=== PATIENT | female | born 1990 | race African-American/Black ===

== ENCOUNTER 2016-12-04 00:04 | Emergency (ER) | payer OTHER ==
[2016-12-04 00:12] VITALS: BP 137/90; PULSE 77; TEMP 97.9; BMI 27.1
--- NOTE | 2016-12-04 00:16 | PDOC ---
History of Present Illness - General Chief Complaint: Injury Stated Complaint: LACERATION TO LEFT FOOT Time Seen by Provider: 12/04/16 00:12 History Source: Patient Exam Limitations: No Limitations - History of Present Illness Initial Comments: 12/04/16 00:12 26 y f no pmhx cut on lt foot w/ glass no other trauma. abjuratory Past History - Past Medical History Allergies/Adverse Reactions: Allergies Allergy/AdvReac Type Severity Reaction Status Date / Time amoxicillin [Amoxicillin] Allergy Verified 12/04/16 00:06 sulfamethoxazole Allergy Verified 12/04/16 00:06 [From Bactrim] trimethoprim [From Bactrim] Allergy Verified 12/04/16 00:06 Home Medications: Ambulatory Orders Duloxetine HCl [Cymbalta] 40 mg PO DAILY 01/05/12 Insulin (LOG) Aspart [NovoLOG] 0 unit SQ ASDIR 01/05/12 Insulin Detemir [Levemir Flextouch] 40 unit SQ HS 04/30/16 Lamotrigine [Lamictal] 200 mg PO DAILY 04/30/16 Diabetes: Yes Psychiatric Problems: Yes (DEPRESSION) - Psycho/Social/Smoking Cessation Hx Anxiety: Yes Suicidal Ideation: No Smoking Status: No Smoking History: Never smoked Number of Cigarettes Smoked Daily: 0 Hx Alcohol Use: No Drug/Substance Use Hx: No Substance Use Type: None Review of Systems - Review of Systems Able to Perform ROS?: Yes Is the patient limited Mongolian proficient: No Constitutional: No: Symptoms Reported Musculoskeletal: No: Symptoms Reported Hematologic/Lymphatic: No: Symptoms Reported *Physical Exam - Physical Exam General Appearance: Yes: Nourished, Appropriately Dressed. No: Apparent Distress Extremity: positive: Normal Capillary Refill, Normal Inspection, Normal Range of Motion Integumentary: positive: Normal Color, Other (1 in sup laceration no active bleeding base of 3-4-5th toes NTV intact) Neurologic: positive: Fully Oriented, Normal Response, Motor Strength 5/5 Procedures - Laceration/Wound Repair Left Dorsal Foot Wound Length: to 2.5 cm Wound Explored: clean Wound's Depth, Shape: superficial Irrigated w/ Saline: Yes Wound Repaired With: Dermabond Sterile Dressing Applied: Yes Progress: 12/04/16 00:15 steri strips *DC/Admit/Observation/Transfer Diagnosis at time of Disposition: Laceration - Discharge Dispostion Disposition: HOME Condition at time of disposition: Stable - Patient Instructions Additional Instructions: KEEP WOUND DRY FOR 48 HOURS. AFTER, REGULAR SOAP AND WATER DO NOT REMOVE STERI-STRIPS. THEY WOULD FALL ON THEIR OWN TYLENOL IF pain RETURN IF BLEEDING, swelling, redness, or fever SEE YOUR DOCTOR FOR FOLLOW UP
== END 2016-12-04 00:18 | disposition home or self-care (01) ==
LOC: FER 00:04
PROC: 0HQNXZZ Repair Left Foot Skin, External Approach (ICD-10-PCS; principal; 2016-12-04)
DX: S91.312A Laceration without foreign body, left foot, initial encounter (principal); W25.XXXA Contact with sharp glass, initial encounter; Y93.9 Activity, unspecified; Y92.9 Unspecified place or not applicable; F41.9 Anxiety disorder, unspecified; E11.9 Type 2 diabetes mellitus without complications; Z79.4 Long term (current) use of insulin; F32.9 Major depressive disorder, single episode, unspecified
CPT/HCPCS: 99281-25

== ENCOUNTER 2018-12-16 19:27 | Emergency (ER) | payer OTHER ==
--- NOTE | 2018-12-16 19:38 | PDOC ---
History of Present Illness - History of Present Illness Initial Comments: This patient is a 28 year old female with PMHx of DM, who presents with 2 days of clogged ears and vertiginous dizziness. Patient also complaining of abdominal pain, vomit (2x) this morning. She also endorses congestion and cough and subjective fever yesterday. She states that her GP was concerned that she was dehydrated and sent her to the ED since she is a diabetic. Patient took her blood glucose 3 hrs ago and states it was 175. Allergies: Amoxicillan & Bactrim ROS General: +subjective fevers, no weakness, no weight loss HEENT: No change in vision. No sore throat, +b/l ear pain & fullness. +nasal congestion Cardiovascular: No chest pain or shortness of breath Respiratory:+cough, no wheezing. Gastrointestinal: +abdominal pain +vomiting (x2), no diarrhea or constipation, No rectal bleeding Genitourinary: No dysuria, hematuria, or frequency Musculoskeletal: No joint or muscle pain or swelling Neurologic: No headache, +vertigo,no loss of consciousness Psychiatric: No depression Skin: No rashes or easy bruising Endocrine: No increased thirst or abnormal weight change Allergic: No skin or latex allergy All other systems reviewed and normal PE General: Well-nourished well-developed individual, no acute distress HEENT: Pupils equal reactive and round, extraocular motion intact.Normal, tonsils normal, no erythema or exudate. Cerumen loosely impacted R>L. Neck: Supple, no meningeal signs, no lymphadenopathy Chest: Nontender to palpation Cardiac: S1-S2 normal, regular rate and rhythm, no murmurs rubs or gallops Respiratory: Lungs clear to auscultation bilateral Abdomen: Soft, nondistended, normal bowel sounds, RUQ tenderness to palpation. Positive Garcia's sign. Extremities: Warm, dry, no cyanosis, clubbing, or edema Skin: No rashes Neuro: Alert and oriented x3, nonfocal exam, grossly intact, normal gait Psych: Normal mood and affect 12/16/18 20:05 <Sophie Chavarria - Last Filed: 12/16/18 20:05> - General History Source: Patient Exam Limitations: No Limitations - History of Present Illness Initial Comments: A portion of this note was documented by scribe services under my direction. I have reviewed the details of the note, within reason, and agree with the documentation with the following case summary and management plan written by me. Patient treated in the ED. Nursing notes are reviewed and incorporated into the medical decision-making. Vital signs reviewed. 12/16/18 21:30 Assessment and plan: This is a 28-year-old female brought in by her mother for evaluation of dizziness, nausea, vomiting, abdominal pain and in general feeling poorly. Patient was given Antivert for the vertigo, patient did have some tenderness in her right upper quadrant and I did an ultrasound that was negative for any gallstones or any acute pathology Patient had urinalysis done that did show a positive urinary tract infection however there was no CVA or flank tenderness and floor technician made note that the kidney looked normal. Patient treated with Macrobid for the urinary tract infection Patient given copies of her blood work and will follow-up with her primary care doctor <Rashid Felton I - Last Filed: 12/16/18 21:32> - General Chief Complaint: Pain, Acute Stated Complaint: EARS CLOGGED,DIZZY,VOMITING Time Seen by Provider: 12/16/18 19:37 Past History <Sophie Chavarria - Last Filed: 12/16/18 20:05> - Past Medical History Diabetes: Yes Psychiatric Problems: Yes (DEPRESSION) - Immunization History Immunization Up to Date: Yes - Suicide/Smoking/Psychosocial Hx Smoking Status: No Smoking History: Never smoked Have you smoked in the past 12 months: No Number of Cigarettes Smoked Daily: 0 Hx Alcohol Use: No Drug/Substance Use Hx: No Substance Use Type: None <Rashid Felton I - Last Filed: 12/16/18 21:32> - Past Medical History Allergies/Adverse Reactions: Allergies Allergy/AdvReac Type Severity Reaction Status Date / Time amoxicillin [Amoxicillin] Allergy Verified 12/16/18 19:34 sulfamethoxazole Allergy Verified 12/16/18 19:34 [From Bactrim] trimethoprim [From Bactrim] Allergy Verified 12/16/18 19:34 Home Medications: Ambulatory Orders Insulin (LOG) Aspart [NovoLOG] 0 unit SQ ASDIR 01/05/12 Insulin Detemir [Levemir Flextouch] 40 unit SQ HS 04/30/16 Lamotrigine [Lamictal] 200 mg PO DAILY 04/30/16 Meclizine HCl [Antivert -] 25 mg PO QID #28 tablet 12/16/18 Nitrofurantoin Monohyd/M-Cryst [Macrobid -] 100 mg PO BID #14 capsule 12/16/18 Ondansetron [Zofran Odt -] 4 mg SL TID #12 od.tablet 12/16/18 Review of Systems - Review of Systems Comments:: 12/16/18 19:49 see HPI <Sophie Chavarria - Last Filed: 12/16/18 20:05> *Physical Exam - Vital Signs Last Vital Signs Temp Pulse Resp BP Pulse Ox 98.2 F 90 16 135/82 100 12/16/18 19:38 12/16/18 19:38 12/16/18 19:38 12/16/18 19:38 12/16/18 19:38 - Physical Exam Comments: 12/16/18 19:49 see HPI <Sophie Chavarria - Last Filed: 12/16/18 20:05> Moderate Sedation - Procedure Monitoring Vital Signs: Procedure Monitoring Vital Signs Temperature 98.2 F 12/16/18 19:38 Pulse Rate 90 12/16/18 19:38 Respiratory Rate 16 12/16/18 19:38 Blood Pressure 135/82 12/16/18 19:38 O2 Sat by Pulse Oximetry (%) 100 12/16/18 19:38 <Sophie Chavarria - Last Filed: 12/16/18 20:05> ED Treatment Course - LABORATORY CBC & Chemistry Diagram: 12/16/18 19:45 12/16/18 19:45 <Rashid Felton I - Last Filed: 12/16/18 21:32> *DC/Admit/Observation/Transfer - Attestations Scribe Attestion: 12/16/18 19:49 Documentation prepared by Sophie Chavarria, acting as rn medical surgical for Rashid Felton MD. <Sophie Chavarria - Last Filed: 12/16/18 20:05> - Discharge Dispostion Decision to Admit order: No <Rashid Felton I - Last Filed: 12/16/18 21:32> Diagnosis at time of Disposition: Viral illness, Vertigo - Discharge Dispostion Disposition: HOME Condition at time of disposition: Stable - Prescriptions Prescriptions: Meclizine HCl [Antivert -] 25 mg PO QID #28 tablet Nitrofurantoin Monohyd/M-Cryst [Macrobid -] 100 mg PO BID #14 capsule Ondansetron [Zofran Odt -] 4 mg SL TID #12 od.tablet - Patient Instructions Additional Instructions: Stop taking Tylenol for pain it is okay to take naproxen or Motrin however do not take the naproxen or Motrin on an empty stomach. For nausea I sent a prescription to your pharmacy for Zofran take one tablet as often as 3 times a day if needed. For the spinning and dizziness sensation take Antivert 1 tablet as often as 4 times a day it may make you a little drowsy. Return to the emergency department immediately with ANY new, persistent or worsening symptoms. Continue any medications as previously prescribed by your physician. You should follow up with your primary doctor as soon as possible regarding today's emergency department visit. . Please make sure your doctor reviews the results of your emergency evaluation. Thank you for coming to the Emergency Department today for your care. It was a pleasure to see you today. Please note that your evaluation is INCOMPLETE until you follow-up with your doctor.
[2018-12-16 19:41] VITALS: BP 135/82; PULSE 90; TEMP 98.2; BMI 26.6
[2018-12-16] MEDS ORDERED: ONDANSETRON 4 MG/2 ML VIAL IVPB ONE (19:44)
[2018-12-16] MEDS ORDERED: SODIUM CHLORIDE 1,000 ML IV ONE (19:44)
[2018-12-16] MEDS ORDERED: FAMOTIDINE 20 MG/50 ML IVPB 20 MG/50 ML MG IVPB ONE ×2 (19:46→20:07)
[2018-12-16] MEDS ORDERED: MECLIZINE HCL 25 MG TABLET (FP) PO ONE (19:46)
[2018-12-16] MEDS ORDERED: MECLIZINE HCL 25 MG TABLET (FP) ONE (20:07)
[2018-12-16] MEDS ORDERED: ONDANSETRON 4 MG/2 ML VIAL ONE (20:07)
[2018-12-16 20:15] LABS: PH,URINE 7.5 (4.5-8); URINE APPEARANCE Slightly; URINE BILIRUBIN Negative (NEGATIVE); URINE COLOR Yellow; URINE GLUCOSE (UA) 2+ (NEGATIVE); URINE KETONE Negative (NEGATIVE); URINE LEUK ESTERASE 2+ (NEGATIVE); URINE NITRITE Negative (NEGATIVE); URINE PROTEIN Negative (NEGATIVE); URINE UROBILINOGEN 0.2 (0.2-1.0)
[2018-12-16 20:22] LABS: BASO % 0.8 % (0-2.0); EOS % 2.4 % (0-4.5); HEMATOCRIT 42.4 % (32.4-45.2); HEMOGLOBIN 13.8 GM/dl (10.7-15.3); LYMPH % 24.5 % (8-40); MCH 27.9 pg (25.7-33.7); MCHC 32.6 g/dl (32.0-36.0); MEAN CELL VOLUME 85.5 fl (80-96); MEAN PLT VOLUME 8.3 fl (7.5-11.1); MONO % 5.2 % (3.8-10.2); NEUT % 67.1 % (42.8-82.8); PLATELET COUNT 419 K/MM3 (134-434); RBC 4.96 M/mm3 (3.60-5.2); RDW 12.5 % (11.6-15.6); WHITE BLOOD COUNT 8.9 K/mm3 (4.0-10.8)
[2018-12-16 20:28] LABS: ALBUMIN 4.5 g/dl (3.4-5.0); ALK PHOS 88 U/L (45-117); ANION GAP 12 MMOL/L (8-16); BILIRUBIN,TOTAL 0.4 mg/dl (0.2-1); BLOOD UREA NITROGEN 9 mg/dl (7-18); CALCIUM 9.9 mg/dl (8.5-10); CHLORIDE 98 mmol/L (98-107); CO2 29 mmol/L (21-32); CREATININE 0.8 mg/dl (0.55-1.3); GLUCOSE,RANDOM 131 mg/dl (74-106); POTASSIUM 3.8 mmol/L (3.5-5.1); SGOT/AST 17 U/L (15-37); SGPT/ALT 11 U/L (13-61); SODIUM 139 mmol/L (136-145); TOT PROT 7.9 g/dl (6.4-8.2)
[2018-12-16 20:34] LABS: EPI CELLS 3+ /HPF; URINE BACTERIA 3+ /hpf (NEGATIVE); URINE RBC 0-2 /hpf (0-3); URINE WBC 20-40 (0-5)
[2018-12-16] MEDS ORDERED: NITROFURANTOIN MACROCRYSTAL 50 MG CAPSULE (FP) PO SCH (21:00)
[2018-12-16 21:08] LABS: LIPASE 121 U/L (73-393)
[2018-12-16] MEDS ORDERED: NITROFURANTOIN MACROCRYSTAL 50 MG CAPSULE (FP) ONE (21:22)
== END 2018-12-16 21:30 | disposition home or self-care (01) ==
LOC: FER 19:27
PROC: 3E033GC Introduction of Other Therapeutic Substance into Peripheral Vein, Percutaneous Approach (ICD-10-PCS; principal; 2018-12-16)
PROC: 3E0337Z Introduction of Electrolytic and Water Balance Substance into Peripheral Vein, Percutaneous Approach (ICD-10-PCS; 2018-12-16)
DX: B34.9 Viral infection, unspecified (principal); R42 Dizziness and giddiness
CPT/HCPCS: 36415; 76705-TC; 80053; 81003; 81015; 83690; 84702; 85025; 87086; 99281-25; J7030

== ENCOUNTER 2019-09-07 18:29 | Emergency (ER) | payer OTHER ==
[2019-09-07 18:38] VITALS: BP 123/85; PULSE 88; TEMP 98.3; BMI 28.1
--- NOTE | 2019-09-07 18:39 | PDOC ---
Rapid Medical Evaluation Chief Complaint: Pain, Acute Time Seen by Provider: 09/07/19 18:34 Medical Evaluation: Allergies Allergy/AdvReac Type Severity Reaction Status Date / Time amoxicillin [Amoxicillin] Allergy Verified 12/16/18 19:34 sulfamethoxazole Allergy Verified 12/16/18 19:34 [From Bactrim] trimethoprim [From Bactrim] Allergy Verified 12/16/18 19:34 09/07/19 18:35 I have performed a brief in-person evaluation of this patient. The patient presents with a chief complaint of:RLQ pain x 3 days- Ct scan at 5 days ago, told has Right Ovarian cyst and given Tylenol. States pain is worsening. Pertinent physical exam findings: Pale with mild abd tenderness/ diffuse- c/o pain with walking and mild dizziness I have ordered the following: UA/ CbC, Cmp, The patient will proceed to the ED for further evaluation. Discharge Disposition - Diagnosis Abdominal pain - Referrals - Patient Instructions - Post Discharge Activity
[2019-09-07 19:05] LABS: BASO % 1.1 % (0-2.0); EOS % 2.2 % (0-4.5); HEMATOCRIT 40.5 % (32.4-45.2); HEMOGLOBIN 13.2 GM/dL (10.7-15.3); LYMPH % 23.7 % (8-40); MCH 28.5 pg (25.7-33.7); MCHC 32.6 g/dl (32.0-36.0); MEAN CELL VOLUME 87.5 fl (80-96); MEAN PLT VOLUME 7.6 fl (7.5-11.1); MONO % 6.1 % (3.8-10.2); NEUT % 66.9 % (42.8-82.8); PLATELET COUNT 413 K/MM3 (134-434); RBC 4.62 M/mm3 (3.60-5.2); RDW 13.5 % (11.6-15.6); WHITE BLOOD COUNT 11.2 K/mm3 (4.0-10.0)
[2019-09-07 19:12] LABS: EPI CELLS 2.9 /HPF (0-5/HPF); HYALINE CASTS 5 /lpf (0-8); URINE APPEARANCE CLEAR; URINE BACTERIA 125.3 /hpf (NEGATIVE); URINE BILIRUBIN NEGATIVE (NEGATIVE); URINE COLOR YELLOW; URINE GLUCOSE (UA) 2+ (NEGATIVE); URINE KETONE NEGATIVE (NEGATIVE); URINE LEUK ESTERASE 1+ (NEGATIVE); URINE NITRITE NEGATIVE (NEGATIVE); URINE PROTEIN NEGATIVE (NEGATIVE); URINE RBC 1 /hpf (0-4); URINE UROBILINOGEN 0.2 mg/dL (0.2-1.0); URINE WBC 5 /hpf (0-5)
[2019-09-07 19:39] LABS: ALBUMIN 4.1 g/dl (3.4-5.0); BILIRUBIN,TOTAL 0.3 mg/dL (0.2-1); BLOOD UREA NITROGEN 8.5 mg/dL (7-18); CALCIUM 9.5 mg/dL (8.5-10.1); CREATININE 0.9 mg/dL (0.55-1.3); POTASSIUM 4.1 mmol/L (3.5-5.1); TOT PROT 7.4 g/dl (6.4-8.2)
--- NOTE | 2019-09-07 19:53 | PDOC ---
History of Present Illness - General Chief Complaint: Pain, Acute Stated Complaint: ABD PAIN Time Seen by Provider: 09/07/19 18:34 History Source: Patient - History of Present Illness Initial Comments: 09/07/19 20:26 29 year old female with RLQ pain x 8 days. seen at [facility] urgent [facility] 6 days ago[address] had normal [address] with right ovarian cyst. patient c/o diarrhea , fever last night worsening abdominal pain now. Pmhx: IDDM PSHX: right shoulder surgery Past History - Past Medical History Allergies/Adverse Reactions: Allergies Allergy/AdvReac Type Severity Reaction Status Date / Time amoxicillin [Amoxicillin] Allergy Verified 12/16/18 19:34 Sulfa (Sulfonamide Allergy Verified 09/07/19 18:38 Antibiotics) sulfamethoxazole Allergy Verified 12/16/18 19:34 [From Bactrim] trimethoprim [From Bactrim] Allergy Verified 12/16/18 19:34 Home Medications: Ambulatory Orders Insulin (LOG) Aspart [NovoLOG] 0 unit SQ ASDIR 01/05/12 Insulin Detemir [Levemir Flextouch] 40 unit SQ HS 04/30/16 Lamotrigine [Lamictal] 200 mg PO DAILY 04/30/16 Meclizine HCl [Antivert -] 25 mg PO QID #28 tablet 12/16/18 Nitrofurantoin Monohyd/M-Cryst [Macrobid -] 100 mg PO BID #14 capsule 12/16/18 Ondansetron [Zofran Odt -] 4 mg SL TID #12 od.tablet 12/16/18 Ibuprofen 600 mg PO BID PRN #20 tablet 09/08/19 Ondansetron HCl [Zofran] 4 mg PO TID PRN #10 tablet 09/08/19 COPD: No Diabetes: Yes Psychiatric Problems: Yes (DEPRESSION) - Immunization History Immunization Up to Date: Yes - Psycho Social/Smoking Cessation Hx Smoking Status: No Smoking History: Never smoked Have you smoked in the past 12 months: No Number of Cigarettes Smoked Daily: 0 Hx Alcohol Use: Yes Drug/Substance Use Hx: No Substance Use Type: None Review of Systems - Review of Systems Able to Perform ROS?: Yes Is the patient limited Botswanan proficient: No ABD/GI: Yes: Diarrhea, Nausea, Abdominal cramping : No: Symptoms Reported, See HPI, Burning, Dysuria, Discharge, Frequency, Flank Pain, Hematuria, Incontinence, Pain, Urgency, Testicular Mass, Testicular Swelling, Lesions, Testicular Pain, Other *Physical Exam - Vital Signs Last Vital Signs Temp Pulse Resp BP Pulse Ox 98.3 F 88 14 123/85 97 09/07/19 18:32 09/07/19 18:32 09/07/19 18:32 09/07/19 18:32 09/07/19 18:32 - Physical Exam General Appearance: Yes: Appropriately Dressed Respiratory/Chest: positive: Lungs Clear, Normal Breath Sounds Cardiovascular: positive: Regular Rhythm, Regular Rate Gastrointestinal/Abdominal: positive: Normal Bowel Sounds, Tender (RLQ pain), Rebound, Other (+ mcburney, + psoas) Extremity: positive: Normal Capillary Refill, Normal Inspection, Normal Range of Motion Integumentary: positive: Normal Color, Dry, Warm Neurologic: positive: Fully Oriented, Alert, Normal Mood/Affect ED Treatment Course - LABORATORY CBC & Chemistry Diagram: 09/07/19 18:50 09/07/19 18:50 - ADDITIONAL ORDERS Additional order review: Laboratory Results 09/07/19 09/07/19 09/07/19 18:50 18:50 18:50 Sodium 137 Potassium 4.1 Chloride 106 Carbon Dioxide 25 Anion Gap 6 L BUN 8.5 Creatinine 0.9 Est GFR (CKD-EPI)AfAm 99.44 Est GFR (CKD-EPI)NonAf 85.80 Random Glucose 96 Calcium 9.5 Total Bilirubin 0.3 AST 8 L ALT 12 L Alkaline Phosphatase 91 Total Protein 7.4 Albumin 4.1 Lipase 74 Urine Color Yellow Urine Appearance Clear Urine pH 7.0 Ur Specific [place] 1.018 Urine Protein Negative Urine Glucose (UA) 2+ H Urine Ketones Negative Urine Blood Negative Urine Nitrite Negative Urine Bilirubin Negative Urine Urobilinogen 0.2 Ur Leukocyte Esterase 1+ H Urine WBC (Auto) 5 Urine RBC (Auto) 1 Urine Casts (Auto) 5 U Epithel Cells (Auto) 2.9 Urine Bacteria (Auto) 125.3 Urine HCG, Qual Negative 09/07/19 18:50 RBC 4.62 MCV 87.5 MCHC 32.6 RDW 13.5 MPV 7.6 Neutrophils % 66.9 Lymphocytes % 23.7 Monocytes % 6.1 Eosinophils % 2.2 Basophils % 1.1 Medical Decision Making - Medical Decision Making A: abdominal pain P: US RUQ/ Pelvic CTAP labs UA 09/08/19 00:35 Pelvic US Limited evaluation of the uterus and endometrial stripe. The right ovary is prominent, though within normal limits measuring 4.6 x 2.8 x 3.1 cm with preserved blood flow. The left ovary is not visualized. No significant free fluid in the pelvis. CTAP: 2.3 cm corpus luteum right ovary. Small physiologic free fluid right adnexa. No bowel obstruction or inflammation. No free air. Normal appendix. Unremarkable liver, spleen, stomach, pancreas, kidneys and gallbladder. Slightly prominent RLQ mesenteric lymph nodes, probably inflammatory. 09/08/19 01:16 Patient is currently Po challenging 09/08/19 01:33 tolerated PO will d/ chome 09/08/19 01:35 patient has no urinary symptoms. patient to follow up with pcp for repeat test and evaluation. patient verbalizes understanding 09/08/19 04:21 Discharge - Discharge Information Problems reviewed: Yes Clinical Impression/Diagnosis: Mesenteric adenitis Abdominal pain Qualifiers: Abdominal location: right lower quadrant Qualified Code(s): R10.31 - Right lower quadrant pain Ovarian cyst Qualifiers: Laterality: right Qualified Code(s): N83.201 - Unspecified ovarian cyst, right side Disposition: HOME - Additional Discharge Information Prescriptions: Ibuprofen 600 mg PO BID PRN #20 tablet PRN Reason: Pain Ondansetron HCl [Zofran] 4 mg PO TID PRN #10 tablet PRN Reason: Nausea - Follow up/Referral Referrals: Bill Arthur MD [Primary Care Provider] - 2 Days Ximena Ochoa MD [Staff Physician] - Call tomorrow - Patient Discharge Instructions Patient Printed Discharge Instructions: Ovarian Cyst Additional Instructions: . Is drink plenty of fluids. Take ibuprofen every 6 hours as needed for pain. You may take Zofran as prescribed For nausea. it is important that you follow-up with the take away attendant as soon as possible - Post Discharge Activity Work/Back to School Note: Back to Work
--- NOTE | 2019-09-07 20:05 | PDOC ---
*Physical Exam - Vital Signs Last Vital Signs Temp Pulse Resp BP Pulse Ox 98.3 F 88 14 123/85 97 09/07/19 18:32 09/07/19 18:32 09/07/19 18:32 09/07/19 18:32 09/07/19 18:32 ED Treatment Course - LABORATORY CBC & Chemistry Diagram: 09/07/19 18:50 09/07/19 18:50 - ADDITIONAL ORDERS Additional order review: Laboratory Results 09/07/19 09/07/19 09/07/19 18:50 18:50 18:50 Sodium Potassium Chloride Carbon Dioxide Anion Gap BUN Creatinine Est GFR (CKD-EPI)AfAm Est GFR (CKD-EPI)NonAf Random Glucose Calcium Total Bilirubin AST ALT Alkaline Phosphatase Total Protein Albumin Lipase Urine Color Yellow Urine Appearance Clear Urine pH 7.0 Ur Specific [place] 1.018 Urine Protein Negative Urine Glucose (UA) 2+ H Urine Ketones Negative Urine Blood Negative Urine Nitrite Negative Urine Bilirubin Negative Urine Urobilinogen 0.2 Ur Leukocyte Esterase 1+ H Urine WBC (Auto) 5 Urine RBC (Auto) 1 Urine Casts (Auto) 5 U Epithel Cells (Auto) 2.9 Urine Bacteria (Auto) 125.3 Urine HCG, Qual Negative Blood Type AB POSITIVE Antibody Screen Negative 09/07/19 18:50 Sodium 137 Potassium 4.1 Chloride 106 Carbon Dioxide 25 Anion Gap 6 L BUN 8.5 Creatinine 0.9 Est GFR (CKD-EPI)AfAm 99.44 Est GFR (CKD-EPI)NonAf 85.80 Random Glucose 96 Calcium 9.5 Total Bilirubin 0.3 AST 8 L ALT 12 L Alkaline Phosphatase 91 Total Protein 7.4 Albumin 4.1 Lipase 74 Urine Color Urine Appearance Urine pH Ur Specific [place] Urine Protein Urine Glucose (UA) Urine Ketones Urine Blood Urine Nitrite Urine Bilirubin Urine Urobilinogen Ur Leukocyte Esterase Urine WBC (Auto) Urine RBC (Auto) Urine Casts (Auto) U Epithel Cells (Auto) Urine Bacteria (Auto) Urine HCG, Qual Blood Type Antibody Screen 09/07/19 18:50 RBC 4.62 MCV 87.5 MCHC 32.6 RDW 13.5 MPV 7.6 Neutrophils % 66.9 Lymphocytes % 23.7 Monocytes % 6.1 Eosinophils % 2.2 Basophils % 1.1 Discharge - Discharge Information Problems reviewed: Yes Clinical Impression/Diagnosis: Abdominal pain Qualifiers: Abdominal location: right lower quadrant Qualified Code(s): R10.31 - Right lower quadrant pain - Follow up/Referral Referrals: Bill Arthur MD [Primary Care Provider] - - Patient Discharge Instructions - Post Discharge Activity
[2019-09-07] MEDS ORDERED: SODIUM CHLORIDE 1,000 ML IV STA ×2 (20:30→22:16)
[2019-09-07] MEDS ORDERED: ONDANSETRON 4 MG/2 ML VIAL IVPUSH ONE (20:31)
[2019-09-07] MEDS ORDERED: morphine CARPU-JECT 4 MG/1 ML DISP.SYRIN IVPUSH ONE (20:31)
[2019-09-07] MEDS ORDERED: morphine SULFATE 4 MG/ML VIAL ONE (21:05)
[2019-09-07] MEDS ORDERED: ONDANSETRON 4 MG/2 ML VIAL ONE (21:05)
[2019-09-07 21:26] LABS: INR 0.97 (0.83-1.09); PROTHROMBIN TIME (PATIENT) 11.4 SEC (9.7-13.0)
[2019-09-07 21:28] LABS: ACTIVATED PTT 33.3 SECONDS (25.2-36.5)
[2019-09-07] MEDS ORDERED: METOCLOPRAMIDE HCL INJECTION 10 MG/2 ML VIAL IVPUSH ONE (23:22)
[2019-09-07] MEDS ORDERED: SODIUM CHLORIDE 1,000 ML IV SCH (23:30)
[2019-09-08] MEDS ORDERED: METOCLOPRAMIDE HCL INJECTION 10 MG/2 ML VIAL ONE (00:27)
[2019-09-08] MEDS ORDERED: KETOROLAC TROMETHAMINE 30 MG/1 ML VIAL IVPUSH ONE (00:36)
[2019-09-08] MEDS ORDERED: ACETAMINOPHEN 500 MG TABLET (FP) PO ONE (02:20)
[2019-09-08] MEDS ORDERED: ACETAMINOPHEN 325 MG TABLET (FP) ONE (02:23)
[2019-09-08] MEDS ORDERED: KETOROLAC TROMETHAMINE 30 MG/1 ML VIAL ONE (02:23)
== END 2019-09-08 02:00 | disposition home or self-care (01) ==
LOC: JER 18:29
PROC: 3E0337Z Introduction of Electrolytic and Water Balance Substance into Peripheral Vein, Percutaneous Approach (ICD-10-PCS; principal; 2019-09-07)
PROC: 3E033NZ Introduction of Analgesics, Hypnotics, Sedatives into Peripheral Vein, Percutaneous Approach (ICD-10-PCS; 2019-09-07)
PROC: 3E0333Z Introduction of Anti-inflammatory into Peripheral Vein, Percutaneous Approach (ICD-10-PCS; 2019-09-07)
PROC: 3E033GC Introduction of Other Therapeutic Substance into Peripheral Vein, Percutaneous Approach (ICD-10-PCS; 2019-09-07)
PROC: 3E033GC Introduction of Other Therapeutic Substance into Peripheral Vein, Percutaneous Approach (ICD-10-PCS; 2019-09-07)
DX: I88.0 Nonspecific mesenteric lymphadenitis (principal); N83.11 Corpus luteum cyst of right ovary; Z88.0 Allergy status to penicillin; Z88.2 Allergy status to sulfonamides
CPT/HCPCS: 36415; 74177-TC; 76705-TC; 76856-TC; 80053; 81003; 83690; 84703; 85025; 85610; 85730; 86850; 86900; 86901; 87040; 87086; 99283-25; J7030

== ENCOUNTER 2020-07-11 13:12 | Emergency (ER) | payer OTHER ==
[2020-07-11 13:28] VITALS: TEMP 98.7; BMI 28.1
--- NOTE | 2020-07-11 13:30 | PDOC ---
History of Present Illness - General Chief Complaint: Pain, Acute Stated Complaint: left ankle pain Time Seen by Provider: 07/11/20 13:30 - History of Present Illness Initial Comments: 07/11/20 13:35 30 year old woman with a history of DM who presents with L ankle pain and swelling after stepping onto an inverted foot while at work yesterday. She reports that she tried to take otc pain medications and rest the ankle but she still reports ankle pain while ambulating. ROS GENERAL/CONSTITUTIONAL: No fever or chills. No weakness. HEAD, EYES, EARS, NOSE AND THROAT: No change in vision. No ear pain or discharge. No sore throat. CARDIOVASCULAR: No chest pain or shortness of breath RESPIRATORY: No cough, wheezing, or hemoptysis. GASTROINTESTINAL: No nausea, vomiting, diarrhea or constipation. GENITOURINARY: No dysuria, frequency, or change in urination. MUSCULOSKELETAL: + joint or muscle swelling or pain. No neck or back pain. SKIN: No rash NEUROLOGIC: No headache, vertigo, loss of consciousness, or change in strength/sensation. ENDOCRINE: No increased thirst. No abnormal weight change HEMATOLOGIC/LYMPHATIC: No anemia, easy bleeding, or history of blood clots. ALLERGIC/IMMUNOLOGIC: No hives or skin allergy. PE GENERAL: Awake, alert, and fully oriented, in no acute distress HEAD: No signs of trauma, normocephalic, atraumatic EYES: EOMI, sclera anicteric, conjunctiva clear ENT: oropharynx clear without exudates. Moist mucosa NECK: Normal ROM, supple LUNGS: No distress, speaks full sentences, clear to auscultation bilaterally HEART: Regular rate and rhythm, normal S1 and S2, no murmurs, rubs or gallops, peripheral pulses normal and equal bilaterally. ABDOMEN: Soft, nontender No guarding, no rebound. No masses EXTREMITIES : Normal inspection, Normal range of motion, + L ankle mild edema, ttp on dorsum of the foot, lateral post tib, NV intact NEUROLOGICAL: Cranial nerves II through XII grossly intact. Normal speech, normal gait, no focal sensorimotor deficits SKIN: Warm, Dry, normal turgor, no rashes or lesions noted Assessment and Plan 30 year old woman with a history of DM who presents with L ankle pain and swelling after stepping onto an inverted foot while at work yesterday. Consider sprain vs fx vs dilocation - XR - pain control Joan Cabrera, PGY3 Emergency Medicine Past History - Medical History Allergies/Adverse Reactions: Allergies Allergy/AdvReac Type Severity Reaction Status Date / Time amoxicillin [Amoxicillin] Allergy Verified 07/11/20 13:14 Sulfa (Sulfonamide Allergy Verified 07/11/20 13:14 Antibiotics) sulfamethoxazole Allergy Verified 07/11/20 13:14 [From Bactrim] trimethoprim [From Bactrim] Allergy Verified 07/11/20 13:14 Home Medications: Ambulatory Orders Insulin (LOG) Aspart [NovoLOG] 0 unit SQ ASDIR 01/05/12 Insulin Detemir [Levemir Flextouch] 40 unit SQ HS 04/30/16 Lamotrigine [Lamictal] 200 mg PO DAILY 04/30/16 Ibuprofen 600 mg PO BID PRN #20 tablet 09/08/19 COPD: No Diabetes: Yes Psychiatric Problems: Yes (DEPRESSION Bi polar) - Reproductive History Is Patient Now?: No - Immunization History Immunization Up to Date: Yes - Psycho-Social/Smoking History Smoking Status: No Smoking History: Never smoked Have you smoked in the past 12 months: No Number of Cigarettes Smoked Daily: 0 Information on smoking cessation initiated: No - Substance Abuse Hx (Audit-C & DAST Scrn) How often the patient has a drink containing alcohol: Never Score: In Men: 4 or > Positive; In Women: 3 or > Positive: 0 Screen Result (Pos requires Nsg. Audit-10AR): Negative In the last yr the pt used illegal drug/Rx for NonMed reason: No Score: Yes response is considered Positive: 0 Screen Result (Positive result requires Nsg. DAST-10): Negative *Physical Exam - Vital Signs Last Vital Signs Temp Pulse Resp BP Pulse Ox 98.7 F 72 18 128/75 100 07/11/20 13:13 07/11/20 13:13 07/11/20 13:13 07/11/20 13:13 07/11/20 13:13 ED Treatment Course - RADIOLOGY Radiology Studies Ordered: Category Date Time Status ANKLE & FOOT-LEFT* [RAD] Stat Radiology 07/11/20 13:15 Ordered LEG TIB/FIB-LEFT [RAD] Stat Radiology 07/11/20 13:15 Ordered Discharge - Discharge Information Problems reviewed: Yes Clinical Impression/Diagnosis: Ankle sprain Condition: Stable - Follow up/Referral Referrals: Thomas Collado MD [Staff Physician] - - Patient Discharge Instructions Patient Printed Discharge Instructions: DI for Ankle Sprain Additional Instructions: You were seen in the ER for complaints of ankle pain and swelling. Your x-rays did not show a fracture. You have a stephanie wrap and crutches. Rest, ice and elevate your foot. You have a referral for Orthopedics follow up within 1 week. See your Primary Care Doctor within 1 week. Return to the ER if you develop worsening worsening pain, swelling, numbness, tingling or any other concerning symptoms. - Post Discharge Activity Work/Back to School Note: Back to Work
--- NOTE | 2020-07-11 13:37 | PDOC ---
Attending Attestation - Resident Resident Name: Joan Cabrera - ED Attending Attestation I have performed the following: I have examined & evaluated the patient, The case was reviewed & discussed with the resident, I agree w/resident's findings & plan, Exceptions are as noted - HPI HPI: 30 yo F history DM presents with L ankle pain after inversion injury yesterday. She says she was going down a set of stairs, stepped on her foot in an inverted position. She has been having pain to her foot, lateral ankle extending into the lateral part of her lower leg. Denies numbness, weakness. Has been taking OTC analgesics without relief. Reports pain with inversion/eversion, weight-bearing. - Physicial Exam PE: GENERAL: Awake, alert, and fully oriented, in no acute distress HEAD: No signs of trauma EXTREMITIES: L ankle with tenderness over the tip of the lateral malleolus. +Minimal swelling. No erythema, no skin changes. No tenderness to 5th metatarsal, no tenderness to midfoot. Remainder of extremities with normal range of motion, no edema. No clubbing or cyanosis. No cords, erythema, or tenderness NEUROLOGICAL: Cranial nerves II through XII grossly intact. Normal speech, +antalgic gait. Motor and sensation intact SKIN: Warm, dry, normal turgor, no rashes or lesions noted. - Medical Decision Making Pt with ankle pain after inversion injury. XR foot and ankle obtained, no acute fx. Given her pain with movement and weight bearing, will place aircast and crutch train her. Discharge - Discharge Information Problems reviewed: Yes Clinical Impression/Diagnosis: Ankle sprain Qualifiers: Encounter type: initial encounter Involved ligament of ankle: unspecified ligament Laterality: left Qualified Code(s): S93.402A - Sprain of unspecified ligament of left ankle, initial encounter Condition: Stable - Follow up/Referral Referrals: Thomsa Collado MD [Staff Physician] - - Patient Discharge Instructions Patient Printed Discharge Instructions: DI for Ankle Sprain Additional Instructions: You were seen in the ER for complaints of ankle pain and swelling. Your x-rays did not show a fracture. You have a stephanie wrap and crutches. Rest, ice and elevate your foot. You have a referral for Orthopedics follow up within 1 week. See your Primary Care Doctor within 1 week. Return to the ER if you develop worsening worsening pain, swelling, numbness, tingling or any other concerning symptoms. - Post Discharge Activity Work/Back to School Note: Back to Work
[2020-07-11] MEDS ORDERED: ACETAMINOPHEN 500 MG TABLET (FP) PO ONE (13:39)
[2020-07-11] MEDS ORDERED: ACETAMINOPHEN 325 MG TABLET (FP) ONE (14:03)
[2020-07-11 15:31] VITALS: BP 120/70; PULSE 70
== END 2020-07-11 15:45 | disposition home or self-care (01) ==
LOC: FER 13:12
DX: S93.402A Sprain of unspecified ligament of left ankle, initial encounter (principal)
CPT/HCPCS: 73590-TC-LT-FY; 73610-TC-LT-FY; 73630-TC-LT; 99284-25

== ENCOUNTER 2021-10-26 07:59 | Emergency (ER) | payer BC, OTHER ==
[2021-10-26] MEDS ORDERED: SODIUM CHLORIDE 0.9% 1000 ML INFUS.BAG IV ONE ×2 (08:08→11:21)
[2021-10-26] MEDS ORDERED: ONDANSETRON 4 MG/2 ML VIAL IVPUSH ONE (08:08)
[2021-10-26 08:14] VITALS: BMI 28.1
[2021-10-26] MEDS ORDERED: PANTOPRAZOLE SODIUM 40 MG VIAL IVPUSH ONE (08:29)
[2021-10-26] MEDS ORDERED: PANTOPRAZOLE SODIUM 40 MG VIAL ONE (08:54)
[2021-10-26] MEDS ORDERED: ONDANSETRON 4 MG/2 ML VIAL ONE (08:54)
[2021-10-26 08:59] LABS: ALBUMIN 3.7 g/dl (3.4-5.0); BILIRUBIN,TOTAL 0.9 mg/dl (0.2-1); CALCIUM 9.1 mg/dl (8.5-10); CREATININE 0.9 mg/dl (0.55-1.3); TOT PROT 6.6 g/dl (6.4-8.2)
[2021-10-26 09:47] LABS: EOS % 3.7 % (0-4.5); HEMOGLOBIN 12.1 GM/dL (10.7-15.3); LYMPH % 18.8 % (8-40); MCH 27.6 pg (25.7-33.7); MCHC 32.6 g/dl (32.0-36.0); MEAN CELL VOLUME 84.5 fl (80-96); MEAN PLT VOLUME 7.8 fl (7.5-11.1); MONO % 6.4 % (3.8-10.2); NEUT % 70.1 % (42.8-82.8); PLATELET COUNT 383 10^3/uL (134-434); RBC 4.37 M/mm3 (3.60-5.2); RDW 14.2 % (11.6-15.6); WHITE BLOOD COUNT 7.4 K/mm3 (4.0-10.0)
[2021-10-26 09:48] LABS: VENOUS BASE EXCESS 4.7 mmol/L (-2-2); VENOUS O2 SATURATION 96.5 % (70-80); VENOUS PCO2 45.4 mmHg (38-52); VENOUS PH 7.433 (7.310-7.410)
[2021-10-26] MEDS ORDERED: MECLIZINE HCL 25 MG TABLET (FP) PO ONE (10:06)
[2021-10-26] MEDS ORDERED: MECLIZINE HCL 25 MG TABLET (FP) ONE (10:21)
[2021-10-26 10:53] LABS: HCG,QUALITATIVE URINE Negative
[2021-10-26 11:43] LABS: EPITHELIAL CELLS FEW /hpf
[2021-10-26 13:52] VITALS: BP 122/78; PULSE 84; TEMP 98.9
== END 2021-10-26 14:36 | disposition home or self-care (01) ==
LOC: FER 07:59
PROC: 3E033NZ Introduction of Analgesics, Hypnotics, Sedatives into Peripheral Vein, Percutaneous Approach (ICD-10-PCS; principal; 2021-10-26)
PROC: 3E033GC Introduction of Other Therapeutic Substance into Peripheral Vein, Percutaneous Approach (ICD-10-PCS; 2021-10-26)
DX: R42 Dizziness and giddiness (principal); K76.0 Fatty (change of) liver, not elsewhere classified; R04.0 Epistaxis
CPT/HCPCS: 36415; 71046-TC-FY; 74177-TC; 80053; 80178; 81003; 81015; 82010; 82803; 83690; 84703; 85025; 87804; 99285-25; C9803-CS; Q9967; U0003; U0005

== ENCOUNTER 2023-03-03 21:59 | Emergency (ER) | payer BC, OTHER ==
[2023-03-03 22:19] VITALS: BP 130/81; PULSE 77; RESP 16; TEMP 100; BMI 25.3
[2023-03-03] MEDS ORDERED: SODIUM CHLORIDE 1,000 ML IV STA (22:32)
[2023-03-03] MEDS ORDERED: ONDANSETRON 4 MG/2 ML VIAL IVPUSH ONE (22:32)
[2023-03-03] MEDS ORDERED: ACETAMINOPHEN 1000 MG/100 ML BAG IVPB ONE (22:32)
[2023-03-03] MEDS ORDERED: FAMOTIDINE 20 MG/50 ML IVPB 20 MG/50 ML MG IVPB ONE ×2 (22:32→22:54)
[2023-03-03] MEDS ORDERED: ONDANSETRON 4 MG/2 ML VIAL ONE (22:53)
[2023-03-03] MEDS ORDERED: ACETAMINOPHEN INJECTION 100 ML IVPB ONE (22:54)
[2023-03-03 23:10] LABS: HEMATOCRIT 41.4 % (32.4-45.2); HEMOGLOBIN 13.4 G/dL (10.7-15.3); MCH 29.2 pg (25.7-33.7); MCHC 32.4 g/dl (32.0-36.0); MEAN CELL VOLUME 89.9 fl (80-96); MEAN PLT VOLUME 7.3 fl (7.5-11.1); PLATELET COUNT 393.5 10^3/uL (134-434); RDW 14.4 % (11.6-15.6); WHITE BLOOD COUNT 12.6 10^3/uL (4.0-10.8)
[2023-03-03 23:19] LABS: HCG,QUALITATIVE URINE Negative
[2023-03-03 23:24] LABS: ALBUMIN 4.1 g/dl (3.4-5.0); BILIRUBIN,TOTAL 0.5 mg/dl (0.2-1); CALCIUM 9.6 mg/dl (8.5-10); CREATININE 0.9 mg/dl (0.55-1.3); POTASSIUM 4.2 mmol/L (3.5-5.1)
[2023-03-03 23:26] LABS: PLATELET ESTIMATE ADEQUATE
[2023-03-03 23:29] LABS: EPITHELIAL CELLS FEW /hpf
== END 2023-03-04 02:15 | disposition home or self-care (01) ==
LOC: FER 21:59
PROC: 3E033GC Introduction of Other Therapeutic Substance into Peripheral Vein, Percutaneous Approach (ICD-10-PCS; principal; 2023-03-03)
PROC: 3E033NZ Introduction of Analgesics, Hypnotics, Sedatives into Peripheral Vein, Percutaneous Approach (ICD-10-PCS; 2023-03-03)
PROC: 3E033GC Introduction of Other Therapeutic Substance into Peripheral Vein, Percutaneous Approach (ICD-10-PCS; 2023-03-03)
PROC: 3E0337Z Introduction of Electrolytic and Water Balance Substance into Peripheral Vein, Percutaneous Approach (ICD-10-PCS; 2023-03-03)
DX: K52.9 Noninfective gastroenteritis and colitis, unspecified (principal); Z20.822 Contact with and (suspected) exposure to COVID-19
CPT/HCPCS: 0241U-QW; 36415; 74177-TC; 80053; 81003; 81015; 82962; 83690; 84703; 85027; 87086; 99285-25; Q9967

== ENCOUNTER 2023-08-18 12:38 | Emergency (ER) | payer BC, OTHER ==
[2023-08-18 13:04] VITALS: BMI 25.8
[2023-08-18] MEDS ORDERED: SODIUM CHLORIDE 0.9% 500 ML INFUS.BAG IV ONE ×3 (13:16→17:21)
[2023-08-18 14:15] LABS: HEMATOCRIT 43.6 % (32.4-45.2); HEMOGLOBIN 13.8 G/dL (10.7-15.3); MCH 28.6 pg (25.7-33.7); MCHC 31.7 g/dl (32.0-36.0); MEAN CELL VOLUME 90.1 fl (80-96); MEAN PLT VOLUME 8.2 fl (7.5-11.1); RBC 4.84 10^6/uL (3.60-5.2); RDW 14.2 % (11.6-15.6); WHITE BLOOD COUNT 13.3 10^3/uL (4.0-10.8)
[2023-08-18 14:28] LABS: ALBUMIN 4.6 g/dl (3.4-5.0); ALK PHOS 80 U/L (45-117); ANION GAP 9 mmol/L (4-13); BILIRUBIN,TOTAL 0.6 mg/dl (0.2-1); CALCIUM 10.1 mg/dl (8.5-10.1); CHLORIDE 99 mmol/L (98-107); CO2 29 mmol/L (21-32); CREATININE 0.9 mg/dl (0.6-1.3); GLUCOSE,RANDOM 115 mg/dl (74-106); POTASSIUM 4.1 mmol/L (3.5-5.1); SGOT/AST 10 U/L (15-37); SGPT/ALT 6 U/L (7-52); SODIUM 137 mmol/L (136-145)
[2023-08-18 15:16] LABS: VENOUS BASE EXCESS 1.9 mmol/L (-2-2); VENOUS O2 SATURATION 75.1 % (70-80); VENOUS PCO2 50.1 mmHg (38-52); VENOUS PH 7.368 (7.310-7.410)
[2023-08-18 18:46] VITALS: BP 116/79; PULSE 75; RESP 14; TEMP 97.8
[2023-08-18 19:49] LABS: HCG,QUALITATIVE URINE Negative
[2023-08-18 20:33] LABS: COCAINE, UR NEGATIVE (NEGATIVE); METHADONE, UR NEGATIVE (NEGATIVE); OPIATES, URI NEGATIVE (NEGATIVE); PHENCYCLIDINE,URINE NEGATIVE (NEGATIVE); URINE AMPHETAMINES NEGATIVE (NEGATIVE); URINE BARBITURATES NEGATIVE (NEGATIVE); URINE BENZODIAZEPINES NEGATIVE (NEGATIVE)
== END 2023-08-18 20:34 | disposition home or self-care (01) ==
LOC: FER 12:38
DX: R55 Syncope and collapse (principal); N39.0 Urinary tract infection, site not specified; R42 Dizziness and giddiness; R11.0 Nausea; R07.89 Other chest pain; R10.9 Unspecified abdominal pain; Z20.822 Contact with and (suspected) exposure to COVID-19
CPT/HCPCS: 0241U-QW; 36415; 70450-TC; 71046-TC-FY; 80053; 80178; 80307; 81003; 81015; 82803; 82930; 82962; 83880; 84484; 84703; 85027; 86308; 86618; 87086; 93005; 99285-25